=== PATIENT | male | born 1940 | race Caucasian/White ===

== ENCOUNTER 2019-11-14 16:02 | Outpatient (CLI) | payer MEDICARE, SELFPAY ==
--- NOTE | 2019-11-14 | MR_ITS ---
WS: [id number] MRI BRAIN WITHOUT CONTRAST HISTORY: ATYPICAL PARKINSONISM, DEMENTIA, IMBALANCE COMPARISON: None available. TECHNIQUE: Diffusion imaging, multiplanar T1, T2 and FLAIR imaging obtained. Diffusion-weighted images are negative for an acute infarct. There is a significant abnormality centered in the RIGHT cerebrum. There is mass effect and midline s hift to the LEFT by 1.6 cm. There is a soft tissue mass with variable signal centered in the RIGHT te mporal/parietal region. A discrete mass is difficult to identified. There are a few areas of hemoside rin deposition with a large amount of increased T2 signal and edema extending to the frontal lobe and the parietal lobe. Subfalcine mild early uncal herniation. There is enlargement of the LEFT ventricl e due to and mild entrapment. Third ventricle is also completely effaced. There is no inferior displa cement of cerebellar tonsils. No inferior displacement of cerebellar tonsils. The sella turcica and pituitary gland are unremarkabl e. Posterior fossa is also unremarkable. Dural venous sinuses and [place] demonstrate no abnormality on this unenhanced studies. Paranasal sinuses: Clear. Mastoid air cells: Normal. Calvarium and scalp: Intact. Notified Benedict Solis MD at 11/15/2019 9:00 AM. Discussed with Pippa at Dr. Solis's office. Report will be faxed to Dr. Solis at this time. Images will be loaded for [employer] via the cloud. MR/MR head wo con* [id number] IMPRESSION: 1. Markedly abnormal process centered in the RIGHT cerebrum with a large amoun t of vasogenic edema. Highly suspicious for underlying mass with microhemorrhag es. 2. Subfalcine and mild uncal herniation to the LEFT by 1.6 cm with entrapment and dilatation of the LEFT ventricle. Third ventricle is effaced. 3. Recommend follow-up MRI brain with contrast for additional evaluation of th e underlying process.
== END 2019-11-14 16:03 | disposition home or self-care (01) ==
LOC: RADSHAW 16:08
PROVIDERS: Visit Provider Psychiatry & Neurology Neurology
DX: G20 Parkinson's disease (principal); F03.90 Unspecified dementia, unspecified severity, without behavioral disturbance, psychotic disturbance, mood disturbance, and anxiety; R26.89 Other abnormalities of gait and mobility
CPT/HCPCS: 70551

== ENCOUNTER 2020-01-03 10:26 | Emergency (ER) | payer MEDICARE, SELFPAY ==
[2020-01-03 10:36] VITALS: BP 151/81; PULSE 109; RESP 18; TEMP 37.1; O2SAT 96; BMI 14.3
--- NOTE | 2020-01-03 10:53 | W.ED.MALEGU ---
HPI - Male Genitourinary General: Chief complaint: Urogenital-Male Stated complaint: QUINTANILLA CATH MALFUNCTION Time Seen by Provider: 01/03/20 10:28 History of Present Illness: HPI Narrative: Patient arrived via ambulance from assisted with catheter become stuck. They cut the catheter off and let the urine run. Complaint: other (Quintanilla cath dislodgment) Onset (ago): hour(s) Duration: constant Review of Systems : Reports: other (Quintanilla cath is still in place with a cut off just about 2 inches from in the penis urine is running freely) Physical Exam Narrative: EXAM NARRATIVE: Patient has not very responsive as per assisted personnel this is normal for the patient : BLADDER/KIDNEY EXAM: Yes other (Patient is incontinent has adult depends on) PENIS: normal penis MEATUS: meatus normal SCROTUM: Yes testes descended bilaterally TESTES: Yes testicular lie normal OTHER: I remove the catheter without difficulty it came out smoothly without any hesitation no blood noted Course Vital Signs: Vital signs: Vital Signs Temperature 98.8 F 01/03/20 10:36 Pulse Rate 109 H 01/03/20 10:36 Respiratory Rate 18 01/03/20 10:36 Blood Pressure 151/81 01/03/20 10:36 Pulse Oximetry 96 01/03/20 10:36 Coding Level of Care Code ED Electrodynamicist for Riri Sarmiento Exam Problem Focused
[2020-01-03 11:00] VITALS: BP 159/82; PULSE 118
[2020-01-03 12:00] VITALS: BP 143/102; PULSE 119; O2SAT 100
[2020-01-03 12:46] VITALS: BP 159/82; PULSE 118; RESP 18; O2SAT 99
[2020-01-03 13:00] VITALS: BP 164/90; PULSE 115; RESP 18; O2SAT 99
[2020-01-03 14:36] LABS: Blood Urine 3+ (Negative); Glucose Urine UA 1+ (Normal); Ketones Urine Negative (Negative); Nitrate Urine Negative (Negative); Protein Urine Trace (Negative); Urine Appearance Clear (CLEAR); Urine Color Straw (Yellow); pH Urine 8 (5-7)
[2020-01-03 14:37] LABS: Add Urine Microscopic? YES; Bilirubin Urine Neg (NEGATIVE); Leukocyte Esterase Urine 1+ (Negative); Sulfosalicylic Acid Urine Positive (Negative); Urobilinogen Urine Norm (Negative)
[2020-01-03 14:42] LABS: Other Sediment, Urine BUD YEAST W/HYPHAE
[2020-01-03 14:43] LABS: Bacteria Urine TRACE; Mucus Urine TRACE; RBC Urine 0-4 /hpf (0-2); Squamous Epithelial Cell Urine 0-4 (0-5); WBC Urine 15-25 /hpf (0-5)
[2020-01-03 14:44] LABS: Add Urine Culture? Yes
== END 2020-01-03 14:14 ==
LOC: ER 12:40
PROVIDERS: Emergency Provider Nurse Practitioner Family
DX: T83.9XXA Unspecified complication of genitourinary prosthetic device, implant and graft, initial encounter (principal)
CPT/HCPCS: 12345; 51702; 81001; 81003; 87086; 99282